=== PATIENT | male | born 1965 | race American Indian/Alaskan Native ===

== ENCOUNTER 2018-11-15 05:23 | Emergency (ER) | payer SELFPAY ==
[2018-11-15 05:40] VITALS: BP 123/77
[2018-11-15] MEDS ORDERED: TYLENOL PO ONE (05:44)
[2018-11-15] MEDS ORDERED: TYLENOL ONE (05:48)
[2018-11-15] MEDS ORDERED: ULTRAM PO ONE (10:48)
[2018-11-15] MEDS ORDERED: TORADOL IM ONE (10:48)
--- NOTE | 2018-11-15 10:52 | Emergency Department Report ---
ED Extremity Problem HPI - General Chief complaint: Extremity Injury, Lower Stated complaint: LEFT LEG PAIN Time Seen by Provider: 11/15/18 10:43 Source: patient Mode of arrival: Ambulatory Limitations: No Limitations - History of Present Illness Initial comments: 52-year-old male with a past medical history asthma presents to the hospital complaining of left hip pain and left knee pain intermittent for 2 weeks. Started at the left hip and now goes down to the knee. He denies any pain below the knee. No recent fall, injury, or recent travel. Patient also denies fever or chills. No reports of numbness or paresthesias. Pain is constant rated 10/10 in intensity, worse with movement ambulation and he feels like his knee is locking up at times. Severity scale (0 -10): 10 - Related Data Previous Rx's Medication Instructions Recorded Last Taken Type Ibuprofen [Motrin] 800 mg PO Q8HR PRN #30 tablet 11/15/18 Unknown Rx RX: traMADol [Ultram 50 MG tab] 50 mg PO Q6HR PRN #20 tablet 11/15/18 Unknown Rx Allergies Allergy/AdvReac Type Severity Reaction Status Date / Time No Known Allergies Allergy Unverified 11/15/18 05:40 ED Review of Systems ROS: Stated complaint: LEFT LEG PAIN Other details as noted in HPI Comment: All other systems reviewed and negative ED Past Medical Hx - Past Medical History Previous Medical History?: Yes Hx Asthma: Yes - Surgical History Past Surgical History?: No - Social History Smoking Status: Current Every Day Smoker Substance Use Type: None - Medications Home Medications: Home Medications Medication Instructions Recorded Confirmed Last Taken Type Ibuprofen [Motrin] 800 mg PO Q8HR PRN #30 tablet 11/15/18 Unknown Rx RX: traMADol [Ultram 50 MG tab] 50 mg PO Q6HR PRN #20 tablet 11/15/18 Unknown Rx ED Physical Exam - General Limitations: No Limitations - Other Other exam information: General: No limitations, patient is alert in no acute distress Head exam: Atraumatic, normocephalic Eyes exam: Normal appearance, pupils equal reactive to light, extraocular mov ements intact ENT: Moist mucous membrane Neck exam: Normal inspection, full range of motion, no meningismus nontender Respiratory exam: Clear to auscultation bilateral, no wheezes, rales, crackles Cardiovascular: Normal rate and rhythm, normal heart sounds Abdomen: Soft, nondistended, and nontender, with normal bowel sounds, no rebound, or guarding Extremity: Full range of motion normal inspection no deformity. No swelling. No warmth. No erythema. Full range of motion passive and active. No calf tenderness or edema. Back: Normal Inspection, full range of motion, no tenderness Neurologic: Alert, oriented x3, cranial nerves intact, no motor or sensory deficit Psychiatric: normal affect, normal mood Skin: Warm, dry, intact ED Course Vital Signs 11/15/18 05:38 Temperature 97.7 F Pulse Rate 74 Respiratory 20 Rate Blood Pressure 123/77 O2 Sat by Pulse 96 Oximetry ED Medical Decision Making - Medical Decision Making Patient has left knee and left hip pain without reported injury. Full range of motion without deformity or signs of infection. The patient treated symptomatically for pain and follow-up encouraged with PMD. - Differential Diagnosis arthritis, arthralgias, radiculopathy Critical Care Time: No Critical care attestation.: If time is entered above; I have spent that time in minutes in the direct care of this critically ill patient, excluding procedure time. ED Disposition Clinical Impression: Left hip pain, Left knee pain Disposition: - TO HOME OR SELFCARE Is pt being admited?: No Does the pt Need Aspirin: No Condition: Stable Instructions: Arthralgia (ED) Additional Instructions: Take the medication as prescribed. Follow up with your doctor or the clinic/doctor provided. Return if symptoms worsen as indicated by your discharge instructions Prescriptions: Ibuprofen [Motrin] 800 mg PO Q8HR PRN #30 tablet PRN Reason: Pain, Moderate (4-6) RX: traMADol [Ultram 50 MG tab] 50 mg PO Q6HR PRN #20 tablet PRN Reason: Pain Referrals: ERAN MACE [Primary Care Provider] - 3-5 Days [facility] [Provider Group] - 3-5 Days Time of Disposition: 10:51
== END 2018-11-15 11:12 | disposition home or self-care (01) ==
LOC: ED 05:23
DX: M25.552 Pain in left hip (principal); M25.562 Pain in left knee; J45.909 Unspecified asthma, uncomplicated; F17.200 Nicotine dependence, unspecified, uncomplicated
CPT/HCPCS: 96372; 99282; J1885